=== PATIENT | female | born 1940 | race Caucasian/White ===

== ENCOUNTER → 2017-08-31 | Outpatient (CLI) | payer MEDICARE ==
[2015-02-19 16:05] VITALS: BMI 24.6
[~2017-08-31] MED LIST: ACE3 PO; ATR80PT PO; CYCL10TA29 PO; DEXA2TAB7 PO; FURO-47 PO; HYDR12.556 PO; METF-415 PO; METF10002 PO; METFORMIN PO; MID PO; MORP-1 PO; MORP-20 PO; MOX400 PO; NAPR220C12 PO; OMEP-218 PO; OMEP40CA45 PO; ONDA4TAB PO; OXYC-865 PO; PER PO; PRE10 PO; PRED-1 PO; SERT-184 PO; TRAM-420 PO
--- NOTE | 2017-08-31 12:01 | EKG ---
[place] [facility] [place] NAME: ALEENA BEASLEY : [id number] MR: [id number] V: [id number] EXAM DATE: ORDERING PHYSICIAN: KELSEY BARRERA TECHNOLOGIST: LINH CANALES Test Reason : IRREGULAR HEARTRATE Blood Pressure : / mmHG Vent. Rate : 087 BPM Atrial Rate : 087 BPM P-R Int : 138 ms QRS Dur : 078 ms QT Int : 372 ms P-R-T Axes : 083 102 071 degrees QTc Int : 447 ms Sinus rhythm with sinus arrhythmia with occasional premature ventricular complexes Otherwise normal ECG No previous ECGs available Referred By: ELIZABETH BARRERA Confirmed By:
[2017-08-31 12:06] LABS: PLATELET COUNT, AUTOMATED 227 K/uL (150-450)
[2017-08-31 12:51] LABS: LDL CHOLESTEROL 139 mg/dl
== END ==
LOC: LAB 11:14
PROVIDERS: ATTEND Nurse Practitioner Primary Care
DX: E11.9 Type 2 diabetes mellitus without complications (principal); I10 Essential (primary) hypertension; R06.00 Dyspnea, unspecified
CPT/HCPCS: 36415; 82040; 82247; 82310; 82374; 82435; 82465; 82565; 82947; 83036; 83718; 83880; 84075; 84132; 84155; 84295; 84450; 84460; 84478; 84520; 85025

== ENCOUNTER → 2017-09-05 | Outpatient (CLI) | payer MEDICARE ==
[2015-02-19 16:05] VITALS: BMI 24.6
== END ==
LOC: US 01:31
PROVIDERS: ATTEND Nurse Practitioner Primary Care
DX: I51.7 Cardiomegaly (principal)
CPT/HCPCS: 93306

== ENCOUNTER → 2017-09-12 | Outpatient (CLI) | payer MEDICARE ==
[2015-02-19 16:05] VITALS: BMI 24.6
== END ==
LOC: LAB 12:22
PROVIDERS: ATTEND Nurse Practitioner Primary Care
DX: E11.9 Type 2 diabetes mellitus without complications (principal)
CPT/HCPCS: 36415; 82040; 82247; 82310; 82374; 82435; 82565; 82947; 84075; 84132; 84155; 84295; 84450; 84460; 84520

== ENCOUNTER → 2017-10-05 | Outpatient (CLI) | payer MEDICARE ==
[2015-02-19 16:05] VITALS: BMI 24.6
[~2017-10-05] MED LIST changes: +LISI-362 PO
== END ==
LOC: LAB 14:43
PROVIDERS: ATTEND Nurse Practitioner Primary Care
DX: E11.9 Type 2 diabetes mellitus without complications (principal)
CPT/HCPCS: 36415; 82040; 82247; 82310; 82374; 82435; 82565; 82947; 84075; 84132; 84155; 84295; 84450; 84460; 84520

== ENCOUNTER → 2017-11-07 | Outpatient (CLI) | payer MEDICARE ==
[2015-02-19 16:05] VITALS: BMI 24.6
[~2017-11-07] MED LIST changes: +ATOR40TA69 PO; +DICL100G39 TOP; +METF-421 PO; +PNEU0.5D3 IM; +RANI-318 PO
== END ==
LOC: LAB 15:13
PROVIDERS: ATTEND Family Medicine
DX: E11.9 Type 2 diabetes mellitus without complications (principal)
CPT/HCPCS: 36415; 82040; 82247; 82310; 82374; 82435; 82565; 82947; 83036; 84075; 84132; 84155; 84295; 84439; 84443; 84450; 84460; 84481; 84520

== ENCOUNTER → 2018-01-29 | Outpatient (CLI) | payer MEDICARE ==
[2015-02-19 16:05] VITALS: BMI 24.6
[~2018-01-29] MED LIST changes: +FLU180SY11 IM; -METF-415 PO; -METF-421 PO; +METF-451 PO; +METF-452 PO; +OMEP-125 PO
== END ==
LOC: LAB 16:43
PROVIDERS: ATTEND Family Medicine
DX: E11.9 Type 2 diabetes mellitus without complications (principal)
CPT/HCPCS: 36415; 83036

== ENCOUNTER → 2018-07-08 | Outpatient (CLI) | payer MEDICARE ==
[2015-02-19 16:05] VITALS: BMI 24.6
[2018-07-08 11:17] LABS: PLATELET COUNT, AUTOMATED 254 K/uL (150-450)
== END ==
LOC: LAB 10:59
PROVIDERS: ATTEND Family Medicine
DX: E11.9 Type 2 diabetes mellitus without complications (principal)
CPT/HCPCS: 36415; 82040; 82247; 82310; 82374; 82435; 82565; 82947; 83036; 84075; 84132; 84155; 84295; 84450; 84460; 84520; 85025

== ENCOUNTER 2018-07-16 10:55 | Inpatient (IN) | payer MEDICARE ==
[~2018-07-16] VITALS: Ht 167.6 cm; Wt 59.9 kg
--- NOTE | 2018-07-16 10:59 | ER Report ---
History and Physical Time Seen By MD: 10:59 HPI/ROS CHIEF COMPLAINT: back pain, sciatica HISTORY OF PRESENT ILLNESS: Patient is a 78-year-old female with past medical history significant for back pain and sciatica. She's also been experiencing some left lower extremity pain specifically to the knee. She was seen approximately one week ago and prescribed a topical nonsteroidal anti- inflammatory cream started physical therapy which patient has had one session so far. She was supposed to have a session today but because of her pain she decid ed to come to the ER instead. She is also supposed to be seen with orthopedics on Sunday for evaluation of the leg pain. She denies any recent falls or trauma she denies picking anything up and injuring her low back. She did state that she tried some Vicodin pills for pain without relief today. She denies any fevers or chills. She denies any abdominal pain but does report she's been having episodes of watery diarrhea. REVIEW OF SYSTEMS: Respiratory: No cough, no dyspnea. Cardiovascular: No chest pain, no palpitations. Gastrointestinal: No vomiting, no abdominal pain. Diarrhea Musculoskeletal: Back pain, right hip pain right lower ext pain Allergies: Coded Allergies: No Known Drug Allergies (Unverified , 07/16/18) Home Meds Active Scripts Atorvastatin Calcium (ATORVASTATIN CALCIUM) 40 Mg Tablet, 1 TAB PO HS for 90 Days, #90 TAB 4 Refills Prov:JOSE MARIA QUINTERO MD 07/16/18 Diclofenac Sodium 1% Gel (VOLTAREN 1% GEL) 100 Gm Gel..gram., 2 GM TOP TID PRN for pain for 30 Days, #1 TUBE Prov:JOSE MARIA QUINTERO MD 07/16/18 Metformin Hcl (METFORMIN HCL) 1,000 Mg Tablet, 1 TAB PO BID for 90 Days, #180 TAB 4 Refills Prov:HARRISON NEELY MD 01/29/18 Omeprazole (OMEPRAZOLE) 20 Mg Capsule.dr, 1 CAP PO DAILY for 90 Days, #90 CAP 3 Refills Prov:HARRISON NEELY MD 01/29/18 Reported Medications Lisinopril (LISINOPRIL) 20 Mg Tablet, 20 MG PO QDAY, TAB 07/16/18 Acetaminophen (TYLENOL EXTRA STRENGTH) 500 Mg Tablet, 1000 MG PO TID, TAB 07/16/18 Discontinued Scripts Lisinopril (LISINOPRIL) 10 Mg Tablet, 1 TAB PO QDAY for 90 Days, #90 TAB 4 Refills Prov:HARRISON NEELY MD 01/29/18 Past Medical/Surgical History Past medical history significant for back pain, with sciatica also history of left knee pain, type II diabetes, gastroesophageal reflux disease, hypercholesterolemia. Hx Smoking: Yes Smoking Status: Current: Every Day Smoker Exposure to Second Hand Smoke?: Yes Hx Substance Use Disorder: No Hx Alcohol Use: Yes Constitutional Vital Sign - Last 24 Hours 07/16/18 07/16/18 07/16/18 07/16/18 11:00 11:02 11:25 11:30 Temp 98.0 Pulse 96 72 Resp 20 B/P (MAP) 170/108 170/108 (128) 136/74 (94) Pulse Ox 90 91 O2 Delivery Room Air 07/16/18 07/16/18 07/16/18 07/16/18 11:55 12:00 12:05 12:20 Pulse 77 73 80 B/P (MAP) 123/83 (96) Pulse Ox 95 93 95 07/16/18 07/16/18 07/16/18 07/16/18 12:30 12:35 12:50 13:01 Pulse 79 87 B/P (MAP) 117/101 (106) 180/101 (127) Pulse Ox 95 88 07/16/18 07/16/18 13:05 13:20 Pulse 80 74 Pulse Ox 100 96 Physical Exam General Appearance: The patient is alert, has no immediate need for airway protection and no current signs of toxicity. Musculoskeletal: Neck: Neck is supple and non tender. Examination of the back reveals no evidence of bony step offs or midline tenderness. Patient does seem to be unable to get into a comfortable position with regard to the right hip and right lower extremity. He does appear to have full range of motion of the hip. Skin: No rashes or lesions. Medical Decision Making Data Points Result Diagram: 07/16/18 1118 07/16/18 1118 Laboratory Hematology Test 07/16/18 11:18 Red Blood Count 5.78 M/uL (4.17-5.56) Mean Corpuscular Volume 91.9 fL (80.0-96.0) Mean Corpuscular Hemoglobin 30.0 pg (26.0-33.0) Mean Corpuscular Hemoglobin Concent 32.6 g/dL (32.0-36.0) Red Cell Distribution Width 17.3 % (11.5-14.5) Mean Platelet Volume 8.3 fL (7.2-11.1) Neutrophils (%) (Auto) 74.8 % (39.4-72.5) Lymphocytes (%) (Auto) 18.9 % (17.6-49.6) Monocytes (%) (Auto) 4.8 % (4.1-12.4) Eosinophils (%) (Auto) 0.4 % (0.4-6.7) Basophils (%) (Auto) 1.1 % (0.3-1.4) Nucleated RBC Relative Count (auto) 0.0 /100WBC Neutrophils # (Auto) 4.9 K/uL (2.0-7.4) Lymphocytes # (Auto) 1.2 K/uL (1.3-3.6) Monocytes # (Auto) 0.3 K/uL (0.3-1.0) Eosinophils # (Auto) 0.0 K/uL (0.0-0.5) Basophils # (Auto) 0.1 K/uL (0.0-0.1) Nucleated RBC Absolute Count (auto) 0.00 K/uL Sodium Level 137 mmol/L (137-145) Potassium Level 4.1 mmol/L (3.5-5.0) Chloride Level 102 mmol/L (98-107) Carbon Dioxide Level 25 mmol/L (22-31) Blood Urea Nitrogen 15 mg/dl (7-18) Creatinine 0.90 mg/dl (0.52-1.04) Glomerular Filtration Rate Calc > 60.0 Random Glucose 125 mg/dl (75-110) Calcium Level 9.5 mg/dl (8.4-10.2) Total Bilirubin 0.5 mg/dl (0.2-1.3) Aspartate Amino Transf (AST/SGOT) 23 U/L (0-35) Alanine Aminotransferase (ALT/SGPT) 19 U/L (0-56) Alkaline Phosphatase 92 U/L (0-126) Total Protein 7.2 g/dl (6.3-8.2) Albumin 4.3 g/dl (3.5-5.0) Chemistry Test 07/16/18 11:18 White Blood Count 6.6 k/uL (4.5-11.0) Red Blood Count 5.78 M/uL (4.17-5.56) Hemoglobin 17.3 g/dL (12.0-16.0) Hematocrit 53.1 % (34.0-47.0) Mean Corpuscular Volume 91.9 fL (80.0-96.0) Mean Corpuscular Hemoglobin 30.0 pg (26.0-33.0) Mean Corpuscular Hemoglobin Concent 32.6 g/dL (32.0-36.0) Red Cell Distribution Width 17.3 % (11.5-14.5) Platelet Count 241 K/uL (150-450) Mean Platelet Volume 8.3 fL (7.2-11.1) Neutrophils (%) (Auto) 74.8 % (39.4-72.5) Lymphocytes (%) (Auto) 18.9 % (17.6-49.6) Monocytes (%) (Auto) 4.8 % (4.1-12.4) Eosinophils (%) (Auto) 0.4 % (0.4-6.7) Basophils (%) (Auto) 1.1 % (0.3-1.4) Nucleated RBC Relative Count (auto) 0.0 /100WBC Neutrophils # (Auto) 4.9 K/uL (2.0-7.4) Lymphocytes # (Auto) 1.2 K/uL (1.3-3.6) Monocytes # (Auto) 0.3 K/uL (0.3-1.0) Eosinophils # (Auto) 0.0 K/uL (0.0-0.5) Basophils # (Auto) 0.1 K/uL (0.0-0.1) Nucleated RBC Absolute Count (auto) 0.00 K/uL Glomerular Filtration Rate Calc > 60.0 Calcium Level 9.5 mg/dl (8.4-10.2) Total Bilirubin 0.5 mg/dl (0.2-1.3) Aspartate Amino Transf (AST/SGOT) 23 U/L (0-35) Alanine Aminotransferase (ALT/SGPT) 19 U/L (0-56) Alkaline Phosphatase 92 U/L (0-126) Total Protein 7.2 g/dl (6.3-8.2) Albumin 4.3 g/dl (3.5-5.0) EKG/Imaging Imaging FACILITY: [facility] [place] PATIENT NAME: Juana Steiner : 1940 MR: [id number] V: [id number] EXAM DATE: [id number] ORDERING PHYSICIAN: FER ODEN TECHNOLOGIST: [facility] Patient: Juana Steiner : 1940 Visit/Account:[id number] Date of Sevice: 07/16/2018 Exam type: L-SPINE 2 OR 3 VIEW History: pain/sciatica, new onset Comparison: February 04, 2015. Findings: Two views of the lumbar spine were submitted. There are five nonrib-bearing lumbar-type vertebral bodies present. There is a sacralized transitional segmen t. There is a gentle levoconvex scoliosis. There are mild multilevel spondylotic changes lumbar spine that appears similar to the prior study. No evidence of acute fractures or subluxations. There are mild sclerotic changes at the SI joints likely arthritic. There moderate vascular calcifications present IMPRESSION: 1. Mild spondylotic changes of the lumbar spine appear similar to the prior study Sclerotic changes at the SI joints are likely arthritic Report Dictated By: Danitza Dubose MD at 07/16/2018 1:01 PM Report E-Signed By: Danitza Dubose MD at 07/16/2018 1:03 PM WSN:[email or web address] FACILITY: [facility] [place] PATIENT NAME: Juana Steiner : 1940 MR: [id number] V: [id number] EXAM DATE: [id number] ORDERING PHYSICIAN: FER ODEN TECHNOLOGIST: [facility] Patient: Juana Steiner : 1940 Visit/Account:[id number] Date of Sevice: 07/16/2018 Exam type: HIP RIGHT History: Pain/sciatica with chronic right hip pain and new onset back pain Comparison: February 04, 2015. 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 There is mild degenerative changes of the right hip joint that appears similar to the prior study. IMPRESSION: 1. Mild degenerative changes the right hip joint appears similar to the prior study. If symptoms persist however MR is recommended Severe osteophytic changes left hip which have increased when compared the prior study Report Dictated By: Danitza Dubose MD at 07/16/2018 12:59 PM Report E-Signed By: Danitza Dubose MD at 07/16/2018 1:01 PM WSN:[email or web address] ED Course/Re-evaluation ED Course 07/16/2018 1:14:08 pm the patient was given a total 4 mg of morphine, 50 mg of IV Toradol and 2 mg of oral Valium with some reduction in her pain. Patient was seen and evaluated by physical therapy to determine stability for ambulation and self-care at home. Patient was unable to perform adequately. Physical therapy's concern was that she lives at home and risk of possible fall. Case was discussed with the admitting hospitalist and patient is admitted at this time. Decision to Disposition Date: Jul 16, 2018 Decision to Disposition Time: 13:14 Depart Departure Latest Vital Signs Vital Signs Date Time Temp Pulse Resp B/P (MAP) Pulse Ox O2 Delivery O2 Flow Rate FiO2 07/16/18 13:20 74 96 07/16/18 13:01 180/101 (127) 07/16/18 11:00 98.0 20 Room Air Impression: Primary Impression: Sciatica Condition: Improved Disposition: Admitted from ER (to Dr Reanna Quintero) Referrals: HARRISON NEELY MD (PCP) New Scripts Atorvastatin Calcium (ATORVASTATIN CALCIUM) 40 Mg Tablet 1 TAB PO HS for 90 Days, #90 TAB 4 Refills Prov: JOSE MARIA QUINTERO MD 07/16/18 Diclofenac Sodium 1% Gel (VOLTAREN 1% GEL) 100 Gm Gel..gram. 2 GM TOP TID PRN for pain for 30 Days, #1 TUBE Prov: JOSE MARIA QUINTERO MD 07/16/18 Problem Qualifiers Primary Impression: Sciatica Laterality: right Qualified Codes: M54.31 - Sciatica, right side FER ODEN MD Jul 16, 2018 10:59
[2018-07-16] MEDS ORDERED: ACET500T68 PO (11:09)
[2018-07-16] MEDS ORDERED: DIAZEPAM 2 MG TAB PO ONE (11:15)
[2018-07-16] MEDS ORDERED: MORPHINE 2 MG/ML SYR IVP ONE ×2 (11:15→11:55)
[2018-07-16 11:29] LABS: PLATELET COUNT, AUTOMATED 241 K/uL (150-450)
[2018-07-16] MEDS ORDERED: KETOROLAC 15 MG/ML VIAL IVP ONE (11:55)
--- NOTE | 2018-07-16 13:05 | RADIOLOGY IMAGING REPORT ---
FACILITY: [facility] - [place] PATIENT NAME: Juana Steiner : 1940 MR: [id number] V: [id number] EXAM DATE: [id number] ORDERING PHYSICIAN: FER ODEN TECHNOLOGIST: Location: [facility] Patient: Juana Steiner : 1940 Visit/Account:[id number] Date of Sevice: 07/16/2018 Exam type: HIP RIGHT History: Pain/sciatica with chronic right hip pain and new onset back pain Comparison: February 04, 2015. 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 There is mild degenerative changes of the right hip joint that appears similar to the prior study. IMPRESSION: 1. Mild degenerative changes the right hip joint appears similar to the prior study. If symptoms pe rsist however MR is recommended Severe osteophytic changes left hip which have increased when compared the prior study Report Dictated By: Danitza Dubose MD at 07/16/2018 12:59 PM Report E-Signed By: Danitza Dubose MD at 07/16/2018 1:01 PM WSN:[email or web address]
--- NOTE | 2018-07-16 13:07 | RADIOLOGY IMAGING REPORT ---
FACILITY: [facility] PATIENT NAME: Juana Steiner : 1940 MR: [id number] V: [id number] EXAM DATE: ORDERING PHYSICIAN: FER ODEN TECHNOLOG[place]: [place] [facility] [place] Ste[place] : 1940 Visit/Account:[id number] Date of Sevice: 07/16/2018 Exam type: L-SPINE 2 OR 3 VIEW History: pain/sciatica, new onset Comparison: February 04, 2015. Findings: Two views of the lumbar spine were submitted. There are five nonrib-bearing lumbar-type vertebral karuna dies present. There is a sacralized transitional segment. There is a gentle levoconvex scoliosis. There are mild multilevel spondylotic changes lumbar spine that appears similar to the prior study. No evidence of acute fractures or subluxations. There are mild sclerotic changes at the SI joints li nathalie arthritic. There moderate vascular calcifications present IMPRESSION: 1. Mild spondylotic changes of the lumbar spine appear similar to the prior study Sclerotic changes at the SI joints are likely arthritic Report Dictated By: Danitza Dubose MD at 07/16/2018 1:01 PM Report E-Signed By: Danitza Dubose MD at 07/16/2018 1:03 PM WSN:[email or web address]
[2018-07-16] MEDS ORDERED: ATOR40TA69 PO (13:38)
[2018-07-16] MEDS ORDERED: DICL100G39 TOP (13:38)
[2018-07-16] MEDS ORDERED: LISI20TA29 PO (13:38)
[2018-07-16] MEDS ORDERED: MORPHINE 1 MG/ML 30 ML PCA IV PRN (14:15)
[2018-07-16] MEDS ORDERED: NALOXONE HCL 0.4 MG/ML VIAL IVP PRN (14:15)
[2018-07-16 14:29] VITALS: BP 164/80
--- NOTE | 2018-07-16 15:04 | History & Physical ---
History of Present Illness History of Present Illness 78yo female with a h/o sciatica, T2DM and recent left knee/ankle pain who came to the ER for R buttock to posterior R thigh pain. This morning while getting up to get another cup of coffee, she developed severe sharp pain along the right side of her "waist". She ended up walking a bit and the pain improved some. However, throughout the morning the pain worsened and would be exacerbated by walking, sitting, or standing up. The pain would go down the back of her right leg to about mid thigh. It got to the point where she couldn't get out of a chair. She has been dealing with left knee pain that radiates to the left ankle on the lateral aspect for a couple of weeks. She also has some numnbess around the lateral ankle. She is to have an appointment with Dr. Bowling on 07/19. She denies any recent falls or trauma. She denies numbness/tingling/weakness in the left leg. She denies urinary incontinence/f/c. In the ER, she was given Toradol, morphine x2, and diazepam. She had some improvement, but when she walked with PT, she had to sit down because of severe pain. History Problems: (1) Hyperlipemia (2) Type 2 diabetes mellitus Status: Chronic (3) GERD (gastroesophageal reflux disease) Status: Chronic (4) History of hysterectomy Status: Resolved (5) Hx of inguinal hernia repair Status: Resolved (6) Sciatica Status: Chronic (7) HTN (hypertension) Status: Chronic Home Meds Active Scripts Atorvastatin Calcium (ATORVASTATIN CALCIUM) 40 Mg Tablet, 1 TAB PO HS for 90 Days, #90 TAB 4 Refills Prov:JOSE MARIA QUINTERO MD 07/16/18 Diclofenac Sodium 1% Gel (VOLTAREN 1% GEL) 100 Gm Gel..gram., 2 GM TOP TID PRN for pain for 30 Days, #1 TUBE Prov:JOSE MARIA QUINTERO MD 07/16/18 Metformin Hcl (METFORMIN HCL) 1,000 Mg Tablet, 1 TAB PO BID for 90 Days, #180 TAB 4 Refills Prov:HARRISON NEELY MD 01/29/18 Omeprazole (OMEPRAZOLE) 20 Mg Capsule.dr, 1 CAP PO DAILY for 90 Days, #90 CAP 3 Refills Prov:HARRISON NEELY MD 01/29/18 Reported Medications Lisinopril (LISINOPRIL) 20 Mg Tablet, 20 MG PO QDAY, TAB 07/16/18 Acetaminophen (TYLENOL EXTRA STRENGTH) 500 Mg Tablet, 1000 MG PO TID, TAB 07/16/18 Discontinued Scripts Lisinopril (LISINOPRIL) 10 Mg Tablet, 1 TAB PO QDAY for 90 Days, #90 TAB 4 Refills Prov:HARRISON NEELY MD 01/29/18 Allergies: Coded Allergies: No Known Drug Allergies (Unverified , 07/16/18) Patient History: FH: CAD (coronary artery disease) MOTHER, , Age:74 Type 2 diabetes mellitus FATHER, , Age:78 MOTHER, , Age:74 Other Social/Family Hx Rare alcohol use. . Lives alone. 1/3ppd smoker. Smoked for over 40 years. Hx Smoking: Yes (1/2 pack per day) Smoking Status: Never Smoker, Current: Every Day Smoker Exposure to Second Hand Smoke?: Yes Caffeine Intake: Coffee, Tea Caffeine/Cups Per Day: 4 Hx Alcohol Use: Yes Hx Substance Use Disorder: No Social Drug Use: Never Review of Systems All Systems Reviewed/Normal: Yes, Except as Noted Exam Vital Signs Vital Signs Date Time Temp Pulse Resp B/P (MAP) Pulse Ox O2 Delivery O2 Flow Rate FiO2 07/16/18 14:29 98.5 73 16 164/80 (108) 92 Room Air 07/16/18 13:49 2.0 General Appearance: Alert, Awake, No Acute Distress Neuro: No Gross deficits (Normal sensation to light touch in LE bilaterally. Normal and symmetric plantar flexion/dorsiflexion/hip flexion. She had some right low back pain with resistance to hip flexion bilaterally and passive hip flexion bilaterally. No clonus.) Eyes: PERRLA ENT: Moist Mucous Membranes Cardiovascular: Regular Rate and Rhythm Respiratory: Clear to Auscultation GI: Abd Soft and Non-Tender Extremities: Warm, Perfused; No Edema Integumentary: No Jaundice, No Cyanosis Medical Decision Making Data Points Result Diagram: 07/16/18 1118 07/16/18 1118 Item Value Date Time Hemoglobin 16.4 g/dL H 07/08/18 1105 Hemoglobin 16.9 g/dL H 08/31/17 1140 Neutrophils (%) (Auto) 74.8 % H 07/16/18 1118 Lymphocytes (%) (Auto) 18.9 % 07/16/18 1118 Monocytes (%) (Auto) 4.8 % 07/16/18 1118 Eosinophils (%) (Auto) 0.4 % 07/16/18 1118 Calcium Level 9.5 mg/dl 07/16/18 1118 Total Bilirubin 0.5 mg/dl 07/16/18 1118 Aspartate Amino Transf (AST/SGOT) 23 U/L 07/16/18 1118 Alanine Aminotransferase (ALT/SGPT) 19 U/L 07/16/18 1118 Alkaline Phosphatase 92 U/L 07/16/18 1118 Blood Urea Nitrogen 13 mg/dl 07/08/18 1105 Creatinine 0.80 mg/dl 07/08/18 1105 EKG / Imaging Imaging Hip Xray - 1. Mild degenerative changes the right hip joint appears similar to the prior study. If symptoms persist however MR is recommended Severe osteophytic changes left hip which have increased when compared the prior study Lumbar Xray - 1. Mild spondylotic changes of the lumbar spine appear similar to the prior study Sclerotic changes at the SI joints are likely arthritic Assessment and Plan Problems: (1) Intractable back pain Status: Acute Assessment & Plan: She presented with severe sharp pain in the right buttock that radiated to mid posterior thigh. She was unable to ambulate secondary to t he pain. No urinary incontinence or RLE weakness/numbness/tingling. She has a h/o a hospital admissions x2 in 01/2015 for right sided sciatica pain related to likely right sided L2 nerve root compression seen on MRI. She ended up having a course of systemic steroids and then had a local steroid injection at and . No problems since. 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 Will ask OT/PT to see tomorrow. (2) Sciatica Status: Chronic Assessment & Plan: See above. (3) Left knee pain Status: Acute Assessment & Plan: She has been dealing with left knee pain that radiates to the left ankle on the lateral aspect for a couple of weeks. She also has some numbness around the lateral ankle. She is to have an appointment with Dr. Bowling on 07/19. (4) Type 2 diabetes mellitus Status: Chronic Assessment & Plan: Chronically on metformin. Likely, having some intermittent loose stools secondary to it. Will continue and use SSI level #2. (5) HTN (hypertension) Status: Chronic Assessment & Plan: Chronically on lisinopril with parameters. Copies to: SEVEN BOWLING MD; HARRISON NEELY MD ; Venous Thromboembolism Antithrombotics Is Pt On Any Antithrombotics?: No Exam Sepsis Risk: No Definite Risk Problem Qualifiers (1) Sciatica: Laterality: right Qualified Codes: M54.31 - Sciatica, right side (2) Left knee pain: Chronicity: chronic Qualified Codes: M25.562 - Pain in left knee; G89.29 - Other chronic pain JOSE MARIA QUINTERO MD Jul 16, 2018 15:04
[2018-07-16] MEDS: LIDOCAINE 5% PATCH TP SCH (15:20)
[2018-07-16] MEDS: DEXAMETHASONE SOD 4 MG/ML VIAL IVP SCH ×2 (15:20→20:44)
[2018-07-16] MEDS ORDERED: PCA LOCKBOX KEYS XX ONE (15:26)
[2018-07-16] MEDS: NS(*) 0.9% 500 ML BAG 500 ML IV PRN (15:39)
[2018-07-16] MEDS ORDERED: PCA LOCKBOX KEYS XX PRN (16:15)
[2018-07-16] MEDS ORDERED: ONDANSETRON 4 MG/2 ML VIAL IVP PRN (17:05)
[2018-07-16] MEDS: metFORMIN HCL 500 MG TAB PO SCH (17:22)
[2018-07-16] MEDS: ACETAMINOPHEN 500 MG TAB PO SCH (17:22)
[2018-07-16 19:23] VITALS: BP 130/83
[2018-07-16] MEDS: ATORVASTATIN 40 MG TAB PO SCH (20:43)
[2018-07-16] MEDS: PATCH REMOVAL 1 EA TP SCH (20:44)
[2018-07-16] MEDS: INSULIN HUM LISPRO 100 UN/ML 3 ML VIAL SUBQ PRN (21:06)
[2018-07-17] MEDS: ACETAMINOPHEN 500 MG TAB PO SCH ×3 (00:18→16:50)
[2018-07-17 02:48] VITALS: BP 167/94
[2018-07-17 07:09] VITALS: BP 127/75
[2018-07-17] MEDS: ENOXAPARIN 40 MG/0.4ML SYR SC SCH (08:27)
[2018-07-17] MEDS: metFORMIN HCL 500 MG TAB PO SCH ×2 (08:28→16:50)
[2018-07-17] MEDS: PANTOPRAZOLE SOD 40 MG TABEC PO SCH (08:29)
[2018-07-17] MEDS: DEXAMETHASONE SOD 4 MG/ML VIAL IVP SCH ×2 (08:29→20:24)
[2018-07-17] MEDS: LISINOPRIL 20 MG TAB PO SCH (08:29)
[2018-07-17] MEDS: NS(*) 0.9% 500 ML BAG 500 ML IV PRN (08:30)
[2018-07-17] MEDS: LIDOCAINE 5% PATCH TP SCH (08:30)
--- NOTE | 2018-07-17 10:50 | Hospitalist Progress Note ---
Subjective Progress Notes Subjective She reports pain has improved. Still some radiation into right buttock/leg. Physical Exam Vital Signs Date Time Temp Pulse Resp B/P (MAP) Pulse Ox O2 Delivery O2 Flow Rate FiO2 07/17/18 09:09 16 96 07/17/18 07:26 Nasal Cannula 2.0 07/17/18 07:09 97.7 82 127/75 (92) Intake and Output 07/17/18 07:00 Intake Total 1126 ml Balance 1126 ml Intake Oral 700 ml IV Total 426 ml # Voids 1 General Appearance: Alert, Awake Neuro: Other (no focal motor deficits/DTRs 1/4 bilaterally in patellar and Achilles) Musculoskeletal: Other (Back with some paraspinal muscle spasm/no trigger point) Psych: Alert & Oriented X3 Result Diagram: 07/16/18 1118 07/16/18 1118 Assessment and Plan Problems: (1) Intractable back pain Status: Acute Assessment & Plan: She presented with severe sharp pain in the right buttock that radiated to mid posterior thigh. She was unable to ambulate secondary to the pain. No urinary incontinence or RLE weakness/numbness/tingling. She has a history of hospital admissions x2 in 01/2015 for right sided sciatica pain related to likely right sided L2 nerve root compression seen on MRI. She ended up having a course of systemic steroids and then had a local steroid injection with Dr. Rizo. She had done well since. 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 OT/PT to see today. She will probably need repeat MRI, but may wait until symptoms have improved (as an outpatient) as she does not feel she could probably lay flat for an extended period of time. (2) Sciatica Status: Chronic Assessment & Plan: See above. (3) Left knee pain Status: Acute Assessment & Plan: She has been dealing with left knee pain that radiates to the left ankle on the lateral aspect for a couple of weeks. She also has some numbness around the lateral ankle. She is to have an appointment with Dr. Bowling on 07/19. (4) Type 2 diabetes mellitus Status: Chronic Assessment & Plan: Chronically on metformin. Likely, having some intermittent loose stools secondary to it. Will continue and use SSI level #2. (5) HTN (hypertension) Status: Chronic Assessment & Plan: Chronically on lisinopril with parameters. Exam Sepsis Risk: No Definite Risk Problem Qualifiers (1) Sciatica: Laterality: right Qualified Codes: M54.31 - Sciatica, right side (2) Left knee pain: Chronicity: chronic Qualified Codes: M25.562 - Pain in left knee; G89.29 - Other chronic pain MARCI OROZCO MD Jul 17, 2018 10:50
[2018-07-17] MEDS: INSULIN HUM LISPRO 100 UN/ML 3 ML VIAL SUBQ PRN ×2 (11:07→16:38)
[2018-07-17] MEDS: DIAZEPAM 2 MG TAB PO PRN ×2 (11:38→20:22)
[2018-07-17 15:09] VITALS: BP 152/70
[2018-07-17 15:11] VITALS: BP 157/83
[2018-07-17 15:53] VITALS: Ht 167.6 cm; Wt 59.9 kg
[2018-07-17 19:08] VITALS: BP 145/75
[2018-07-17] MEDS ORDERED: LISI-362 PO (19:43)
[2018-07-17] MEDS: ATORVASTATIN 40 MG TAB PO SCH (20:22)
[2018-07-17] MEDS: PATCH REMOVAL 1 EA TP SCH (20:22)
[2018-07-18] MEDS: ACETAMINOPHEN 500 MG TAB PO SCH ×2 (00:45→08:56)
[2018-07-18] MEDS: NS(*) 0.9% 500 ML BAG 500 ML IV PRN (03:02)
[2018-07-18 08:48] VITALS: BP 138/68
[2018-07-18] MEDS: metFORMIN HCL 500 MG TAB PO SCH (08:55)
[2018-07-18] MEDS: ENOXAPARIN 40 MG/0.4ML SYR SC SCH (08:56)
[2018-07-18] MEDS: LISINOPRIL 20 MG TAB PO SCH (08:56)
[2018-07-18] MEDS: DEXAMETHASONE SOD 4 MG/ML VIAL IVP SCH (08:56)
[2018-07-18] MEDS: PANTOPRAZOLE SOD 40 MG TABEC PO SCH (08:56)
[2018-07-18] MEDS: LIDOCAINE 5% PATCH TP SCH (08:57)
[2018-07-18] MEDS ORDERED: POLYETHYLENE GLYCOL 17 GM PKT PO ONE (09:00)
[2018-07-18] MEDS ORDERED: METH4TAB66 PO (09:47)
[2018-07-18] MEDS ORDERED: DIAZ2TAB74 PO (09:47)
[2018-07-18] MEDS ORDERED: OXYC5TAB38 PO (09:47)
--- NOTE | 2018-07-18 09:57 | Hospitalist Depart ---
Discharge Summary Reason for Hosp/Final Diag: (1) Intractable back pain Status: Acute Hospital Course & Plan: She presented with severe sharp pain in the right buttock that radiated to mid posterior thigh. She was unable to ambulate secondary to the pain. No urinary incontinence or RLE weakness/numbness/tingling. She has a history of hospital admissions x2 in 01/2015 for right sided sciatica pain related to likely right sided L2 nerve root compression seen on MRI. She ended up having a course of systemic steroids and then had a local steroid injection with Dr. Rizo. She had done well since. 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 OT/PT recommended HH for patient. She will probably need repeat MRI, but may wait until symptoms have improved (as an outpatient) as she does not feel she could probably lay flat for an extended period of time. She has appointment tomorrow with Dr. Bowling. (2) Sciatica Status: Chronic Hospital Course & Plan: See above. (3) Left knee pain Status: Acute Hospital Course & Plan: She has been dealing with left knee pain that radiates to the left ankle on the lateral aspect for a couple of weeks. She also has some numbness around the lateral ankle. She is to have an appointment with Dr. Bowling on 07/19. (4) Type 2 diabetes mellitus Status: Chronic Hospital Course & Plan: Chronically on metformin. Likely, having some intermi ttent loose stools secondary to it. She will follow up with Dr. Neely. Continue. (5) HTN (hypertension) Status: Chronic Hospital Course & Plan: Chronically on lisinopril with parameters. Departure Latest Vital Signs Vital Signs 07/18/18 07/18/18 07/18/18 08:48 09:07 09:20 Temp 98.1 Pulse 66 Resp 14 B/P (MAP) 138/68 (91) Pulse Ox 93 O2 Delivery Room Air Weight (Pounds): 132 Result Diagram: 07/16/18 1118 07/16/18 1118 Condition: Improved Discharge: Home, Home Health PT/OT Follow Up For: PT For Strengthening, OT For ADL's, PT Evaluation and Treat, OT Evaluation and Treat Discharge Instructions Home Meds Active Scripts Methylprednisolone (METHYLPREDNISOLONE) 4 Mg Tab.ds.pk, 4 MG PO DIRECTED, #1 PACK Prov:JACLYN THOMPSON 07/18/18 Diazepam (DIAZEPAM) 2 Mg Tablet, 2 MG PO TID PRN for spasm, #12 TAB Prov:JACLYN THOMPSON [facility] 07/18/18 Oxycodone Hcl (OXYCODONE HCL) 5 Mg Tablet, 5 MG PO Q6H PRN for PAIN, #12 TAB Prov:JACLYN THOMPSON [facility] 07/18/18 Atorvastatin Calcium (ATORVASTATIN CALCIUM) 40 Mg Tablet, 1 TAB PO HS for 90 Days, #90 TAB 4 Refills Prov:JOSE MARIA QUINTERO MD 07/16/18 Diclofenac Sodium 1% Gel (VOLTAREN 1% GEL) 100 Gm Gel..gram., 2 GM TOP TID PRN for pain for 30 Days, #1 TUBE Prov:JOSE MARIA QUINTERO MD 07/16/18 Metformin Hcl (METFORMIN HCL) 1,000 Mg Tablet, 1 TAB PO BID for 90 Days, #180 TAB 4 Refills Prov:AHRRISON NEELY MD 01/29/18 Omeprazole (OMEPRAZOLE) 20 Mg Capsule.dr, 1 CAP PO DAILY for 90 Days, #90 CAP 3 Refills Prov:HARRISON NEELY MD 01/29/18 Reported Medications Lisinopril (LISINOPRIL) 10 Mg Tablet, 1 TAB PO QDAY 07/17/18 Acetaminophen (TYLENOL EXTRA STRENGTH) 500 Mg Tablet, 1-2 TAB PO TID PRN for PAIN, TAB 07/16/18 Discontinued Reported Medications Lisinopril (LISINOPRIL) 20 Mg Tablet, 20 MG PO QDAY, TAB 07/16/18 Discontinued Scripts Lisinopril (LISINOPRIL) 10 Mg Tablet, 1 TAB PO QDAY for 90 Days, #90 TAB 4 Refills Prov:HARRISON NEELY MD 01/29/18 Diet: Regular, Diabetic Activity: As Tolerated Special Instructions: Follow up with Dr. Bowling at [facility] 07/19/18. Follow up with Dr. Neely on 08/05/18 at 9:30am. Take Valium and Oxycodone as needed. Take Medrol dose pack until gone. Copies to: HARRISON NEELY MD ; Venous Thromboembolism Antithrombotics Is Pt On Any Antithrombotics?: No Problem Qualifiers (1) Sciatica: Laterality: right Qualified Codes: M54.31 - Sciatica, right side (2) Left knee pain: Chronicity: chronic Qualified Codes: M25.562 - Pain in left knee; G89.29 - Other chronic pain (3) HTN (hypertension): Hypertension type: essential hypertension Qualified Codes: I10 - Essential (primary) hypertension JACLYN THOMPSON [facility] Jul 18, 2018 09:57
[2018-07-20] MEDS ORDERED: INFLUENZA VIRUS VAC 0.5ML SYR IM ONLY ONE (09:00)
== END 2018-07-18 10:30 | disposition home health service (06) | DRG 74 ==
LOC: ER 11:16 → MED 13:21
PROVIDERS: ADMIT Internal Medicine; ATTEND Internal Medicine
DX: G54.4 Lumbosacral root disorders, not elsewhere classified (principal); E11.9 Type 2 diabetes mellitus without complications; K21.9 Gastro-esophageal reflux disease without esophagitis; F17.210 Nicotine dependence, cigarettes, uncomplicated; G89.29 Other chronic pain; E78.00 Pure hypercholesterolemia, unspecified; R42 Dizziness and giddiness; M25.562 Pain in left knee; Z79.84 Long term (current) use of oral hypoglycemic drugs
CPT/HCPCS: 36416; 72100; 82040; 82247; 82310; 82374; 82435; 82565; 82947; 82948; 84075; 84132; 84155; 84295; 84450; 84460; 84520; 85025; 96374; 96375; 96376; 97161; 97165; 99284; J1100; J1650; J1885; J2270; J2405; J7040

== ENCOUNTER → 2018-08-06 | Emergency (ER) | payer MEDICARE ==
[2018-07-17 15:53] VITALS: Wt 59.9 kg
[~2018-08-06] MED LIST changes: +ACET500T68 PO; +CAPSAICIN 60 GM TUBE TP SCH; +DEXAMETHASONE SOD PHOS 10MG/ML IVP ONE; +DIAZ2TAB74 PO; +DILTIAZEM 5 MG/ML 5ML IVPUSH IVP ONE; +DILTIAZEM SR 60 MG CAPCR PO ONE; +LISI20TA29 PO; +METH4TAB66 PO; +MORPHINE 4 MG/ML SDV IVP ONE; +NS(*) 0.9% 1000 ML BAG 1,000 ML IV ONE; +OXYC-373 PO; +OXYC5TAB38 PO; +TRIAMCINOLONE ACE 40 MG/ML VL IM ONE; +traMADol 50 MG TAB PO ONE
--- NOTE | 2018-08-06 12:37 | ER Report ---
History and Physical Time Seen By MD: 12:36 HPI/ROS History of sciatica and other areas of pain. Was recently admitted to the hospital for pain control. Was placed on Percocet and Valium upon discharge from the hospital. Ran out of meds 3 days ago and now with pain again. No recent falls. No fever chills. No abdominal pain, chest pain, or worsening shortness of breath from her baseline. Smokes cigarettes daily. Has follow up appointment with Dr. Farooq at [facility] this week. Remainder of the 14 system rev: Yes Allergies: Coded Allergies: No Known Drug Allergies (Unverified , 08/06/18) Home Meds Active Scripts Oxycodone Hcl/Acetaminophen (OXYCODONE-ACETAMINOPHEN 5-325) 1 Each Tablet, 1 EACH PO 1-2XD for 7 Days, #14 TAB Prov:IMAN CHEATHAM MD 08/06/18 Oxycodone Hcl (OXYCODONE HCL) 5 Mg Tablet, 5 MG PO Q6H PRN for PAIN, #12 TAB Prov:JACLYN THOMPSON 07/18/18 Atorvastatin Calcium (ATORVASTATIN CALCIUM) 40 Mg Tablet, 1 TAB PO HS for 90 Days, #90 TAB 4 Refills Prov:JOSE MARIA QUINTERO MD 07/16/18 Diclofenac Sodium 1% Gel (VOLTAREN 1% GEL) 100 Gm Gel..gram., 2 GM TOP TID PRN for pain for 30 Days, #1 TUBE Prov:JOSE MARIA QUINTERO MD 07/16/18 Metformin Hcl (METFORMIN HCL) 1,000 Mg Tablet, 1 TAB PO BID for 90 Days, #180 TAB 4 Refills Prov:HARRISON NEELY MD 01/29/18 Omeprazole (OMEPRAZOLE) 20 Mg Capsule.dr, 1 CAP PO DAILY for 90 Days, #90 CAP 3 Refills Prov:HARRISON NEELY MD 01/29/18 Reported Medications Lisinopril (LISINOPRIL) 10 Mg Tablet, 1 TAB PO QDAY 07/17/18 Acetaminophen (TYLENOL EXTRA STRENGTH) 500 Mg Tablet, 1-2 TAB PO TID PRN for PAIN, TAB 07/16/18 Discontinued Scripts Methylprednisolone (METHYLPREDNISOLONE) 4 Mg Tab.ds.pk, 4 MG PO DIRECTED, #1 PACK Prov:JACLYN THOMPSON 07/18/18 Diazepam (DIAZEPAM) 2 Mg Tablet, 2 MG PO TID PRN for spasm, #12 TAB Prov:JACLYN THOMPSON [employer] 07/18/18 Hx Smoking: Yes (1/2 pack per day) Smoking Status: Never Smoker, Current: Every Day Smoker Exposure to Second Hand Smoke?: Yes Hx Substance Use Disorder: No Hx Alcohol Use: Yes Constitutional Vital Sign - Last 24 Hours 08/06/18 08/06/18 08/06/18 08/06/18 12:30 12:30 13:12 13:15 Temp 97.7 Pulse 108 117 161 Resp 20 13 B/P (MAP) 123/88 101/84 (90) Pulse Ox 90 93 O2 Delivery Room Air 08/06/18 08/06/18 08/06/18 08/06/18 13:19 13:24 13:30 13:45 Pulse 86 85 Resp 13 16 B/P (MAP) 124/64 (84) 99/84 (89) 125/74 (91) 113/79 (90) Pulse Ox 95 94 08/06/18 08/06/18 08/06/18 08/06/18 14:00 14:15 14:30 14:45 Pulse 93 89 103 Resp 9 7 11 28 B/P (MAP) 123/80 (94) 137/80 (99) 133/73 (93) Pulse Ox 86 92 82 08/06/18 08/06/18 08/06/18 08/06/18 15:00 15:15 15:30 17:15 Pulse 89 80 82 96 Resp 10 15 16 B/P (MAP) 140/91 (107) 154/86 (108) 112/80 (91) Pulse Ox 86 84 97 91 08/06/18 08/06/18 08/06/18 17:30 17:38 17:45 Pulse 91 90 B/P (MAP) 158/83 (108) Pulse Ox 91 88 Physical Exam General Appearance: The patient is alert, has no immediate need for airway protection and no signs of toxicity. Eyes: Pupils equal and round no pallor or injection. Respiratory: There are no retractions, lungs are clear to auscultation. Cardiovascular: Regular rate and rhythm. Gastrointestinal: Abdomen is soft and non tender, no masses, bowel sounds normal. Neurological: Strength/sensation grossly in tact. Skin: Warm and dry, no rashes. Musculoskeletal: TTP at the left sciatic region Extremities are nontender, nonswollen and have full range of motion. DIFFERENTIAL DIAGNOSIS: After history and physical exam differential diagnosis was considered for back pain including but not limited to muscular pain, herniated disc, spine fracture, intra-abdominal causes and urinary tract infection. Medical Decision Making Data Points Result Diagram: 08/06/18 1310 08/06/18 1310 Laboratory Hematology Test 08/06/18 13:10 Red Blood Count 5.57 M/uL (4.17-5.56) Mean Corpuscular Volume 92.7 fL (80.0-96.0) Mean Corpuscular Hemoglobin 30.3 pg (26.0-33.0) Mean Corpuscular Hemoglobin Concent 32.7 g/dL (32.0-36.0) Red Cell Distribution Width 17.8 % (11.5-14.5) Mean Platelet Volume 8.3 fL (7.2-11.1) Neutrophils (%) (Auto) 81.6 % (39.4-72.5) Lymphocytes (%) (Auto) 12.7 % (17.6-49.6) Monocytes (%) (Auto) 4.7 % (4.1-12.4) Eosinophils (%) (Auto) 0.4 % (0.4-6.7) Basophils (%) (Auto) 0.6 % (0.3-1.4) Nucleated RBC Relative Count (auto) 0.0 /100WBC Neutrophils # (Auto) 5.9 K/uL (2.0-7.4) Lymphocytes # (Auto) 0.9 K/uL (1.3-3.6) Monocytes # (Auto) 0.3 K/uL (0.3-1.0) Eosinophils # (Auto) 0.0 K/uL (0.0-0.5) Basophils # (Auto) 0.0 K/uL (0.0-0.1) Nucleated RBC Absolute Count (auto) 0.00 K/uL D-Dimer Quantitative (PE/DVT) 0.60 ug/ml (0-0.50) Sodium Level 135 mmol/L (137-145) Potassium Level 4.0 mmol/L (3.5-5.0) Chloride Level 102 mmol/L (98-107) Carbon Dioxide Level 24 mmol/L (22-31) Blood Urea Nitrogen 14 mg/dl (7-18) Creatinine 1.00 mg/dl (0.52-1.04) Glomerular Filtration Rate Calc 53.6 Random Glucose 143 mg/dl (75-110) Calcium Level 9.3 mg/dl (8.4-10.2) Total Bilirubin 0.5 mg/dl (0.2-1.3) Aspartate Amino Transf (AST/SGOT) 23 U/L (0-35) Alanine Aminotransferase (ALT/SGPT) 22 U/L (0-56) Alkaline Phosphatase 85 U/L (0-126) Troponin I 0.016 ng/ml Total Protein 6.4 g/dl (6.3-8.2) Albumin 3.7 g/dl (3.5-5.0) Chemistry Test 08/06/18 13:10 White Blood Count 7.3 k/uL (4.5-11.0) Red Blood Count 5.57 M/uL (4.17-5.56) Hemoglobin 16.9 g/dL (12.0-16.0) Hematocrit 51.7 % (34.0-47.0) Mean Corpuscular Volume 92.7 fL (80.0-96.0) Mean Corpuscular Hemoglobin 30.3 pg (26.0-33.0) Mean Corpuscular Hemoglobin Concent 32.7 g/dL (32.0-36.0) Red Cell Distribution Width 17.8 % (11.5-14.5) Platelet Count 265 K/uL (150-450) Mean Platelet Volume 8.3 fL (7.2-11.1) Neutrophils (%) (Auto) 81.6 % (39.4-72.5) Lymphocytes (%) (Auto) 12.7 % (17.6-49.6) Monocytes (%) (Auto) 4.7 % (4.1-12.4) Eosinophils (%) (Auto) 0.4 % (0.4-6.7) Basophils (%) (Auto) 0.6 % (0.3-1.4) Nucleated RBC Relative Count (auto) 0.0 /100WBC Neutrophils # (Auto) 5.9 K/uL (2.0-7.4) Lymphocytes # (Auto) 0.9 K/uL (1.3-3.6) Monocytes # (Auto) 0.3 K/uL (0.3-1.0) Eosinophils # (Auto) 0.0 K/uL (0.0-0.5) Basophils # (Auto) 0.0 K/uL (0.0-0.1) Nucleated RBC Absolute Count (auto) 0.00 K/uL D-Dimer Quantitative (PE/DVT) 0.60 ug/ml (0-0.50) Glomerular Filtration Rate Calc 53.6 Calcium Level 9.3 mg/dl (8.4-10.2) Total Bilirubin 0.5 mg/dl (0.2-1.3) Aspartate Amino Transf (AST/SGOT) 23 U/L (0-35) Alanine Aminotransferase (ALT/SGPT) 22 U/L (0-56) Alkaline Phosphatase 85 U/L (0-126) Troponin I 0.016 ng/ml Total Protein 6.4 g/dl (6.3-8.2) Albumin 3.7 g/dl (3.5-5.0) Coagulation Test 08/06/18 13:10 D-Dimer Quantitative (PE/DVT) 0.60 ug/ml ED Course/Re-evaluation ED Course The patient came to the emergency department with a complaint of left back and leg pain. However while in the emergency department it was noted that the patient went into paroxysmal atrial flutter with RVR. She was given a dose of diltiazem which converted her back to sinus rhythm. Normal heart rate after that. As far as her sciatica pain, a trigger point injection was administered us ing lidocaine bupivacaine and Kenalog. Her pain was not relieved, and after an extensive conversation with the family and Dr. Neely, the only option to keep her from having to be admitted to the hospital was a prescription for Percocet. I gave her an RX for Percocet, and she will follow up with Dr. Farooq this week. For her episode of aflutter, she was placed on a 48 hour holter monitor, and will follow up with Dr. Neely. Decision to Disposition Date: August 06, 2018 Decision to Disposition Time: 16:46 Depart Departure Latest Vital Signs Vital Signs Date Time Temp Pulse Resp B/P (MAP) Pulse Ox O2 Delivery O2 Flow Rate FiO2 08/06/18 17:45 90 88 5/7/19 17:38 158/83 (108) 08/06/18 15:30 16 08/06/18 12:30 97.7 Room Air Impression: Primary Impression: Sciatica Additional Impression: Atrial flutter, paroxysmal Condition: Improved Disposition: HOME OR SELF-CARE Referrals: HARRISON NEELY MD (PCP) New Scripts Oxycodone Hcl/Acetaminophen (OXYCODONE-ACETAMINOPHEN 5-325) 1 Each Tablet 1 EACH PO 1-2XD for 7 Days, #14 TAB Prov: IMAN CHEATHAM MD 08/06/18 Patient Instructions: Atrial Flutter (ED), Leg Pain (ED), Sciatica (ED) Problem Qualifiers Primary Impression: Sciatica Laterality: left Qualified Codes: M54.32 - Sciatica, left side IMAN CHEATHAM MD August 06, 2018 12:37
[2018-08-06 13:30] LABS: PLATELET COUNT, AUTOMATED 265 K/uL (150-450)
--- NOTE | 2018-08-06 13:42 | EKG ---
FACILITY: [facility] - [place] PATIENT NAME: ALEENA BEASLEY : [id number] MR: [id number] V: [id number] EXAM DATE: ORDERING PHYSICIAN: IMAN CHEATHAM TECHNOLOGIST: FELIPE Garza Reason : TACHY Blood Pressure : / mmHG Vent. Rate : 162 BPM Atrial Rate : 324 BPM P-R Int : 000 ms QRS Dur : 074 ms QT Int : 288 ms P-R-T Axes : -83 097 032 degrees QTc Int : 472 ms Supraventricular tacycardia with occasional ventricular ectopy vs. aberrantly conducted complexes Possible previous septal infarct Marked ST abnormality, possible inferior subendocardial injury Abnormal ECG Confirmed by MARCI OROZCO ([id number]) on 08/06/2018 3:06:19 PM Referred By: CHAPARRITA Confirmed By:MARCI OROZCO
--- NOTE | 2018-08-06 14:29 | RADIOLOGY IMAGING REPORT ---
[place] [facility] [place]IENT NAME: Juana Steiner : 1940 MR: [id number] V: [id number] EXAM DATE: ORDERING PHYSICIAN: IMAN CHEATHAM TECHNOLOGIST: Location: [facility] Patient: Juana Steiner : 1940 Visit/Account:[id number] Date of Sevice: 08/06/2018 Study: Single portable view of the chest. Indication: Tachycardia Comparison study: February 22, 2015 Technique: Single AP view of the chest demonstrates no evidence of acute infiltrate. There is no evid ence of pleural effusion or pneumothorax. The mediastinal, cardiac, and diaphragmatic contours are un remarkable. IMPRESSION: Unremarkable chest. Report Dictated By: Zak Rosado at 08/06/2018 2:20 PM Report E-Signed By: Zak Rosado at 08/06/2018 2:24 PM WSN:[id number]
[2018-08-06 17:38] VITALS: BP 158/83
== END ==
LOC: ER 12:36
DX: M54.32 Sciatica, left side (principal); I48.92 Unspecified atrial flutter; F17.210 Nicotine dependence, cigarettes, uncomplicated
CPT/HCPCS: 20552; 71045; 84484; 85025; 85379; 93005; 93225; 96361; 96374; 96375; 99284; A9270; J1100; J2270; J3301; J3490; J7030; 82040; 82247; 82310; 82374; 82435; 82565; 82947; 84075; 84132; 84155; 84295; 84450; 84460; 84520

== ENCOUNTER 2018-08-21 00:24 | Inpatient (IN) | payer MEDICARE ==
[~2018-08-21] VITALS: Ht 167.6 cm; Wt 56.7 kg
[2018-08-21] VITALS (19 sets, daily range): BP systolic 90–136; BP diastolic 55–80
[~2018-08-21 00:24] MED LIST changes: +CAPS60CR TP; -CAPSAICIN 60 GM TUBE TP SCH; -DEXAMETHASONE SOD PHOS 10MG/ML IVP ONE; +DILT120C28 PO; -DILTIAZEM 5 MG/ML 5ML IVPUSH IVP ONE; -DILTIAZEM SR 60 MG CAPCR PO ONE; +FURO40TA35 PO; -MORPHINE 4 MG/ML SDV IVP ONE; -NS(*) 0.9% 1000 ML BAG 1,000 ML IV ONE; -TRIAMCINOLONE ACE 40 MG/ML VL IM ONE; +[UNRECOGNIZED DRUG - CODE] PO; -traMADol 50 MG TAB PO ONE
[2018-08-21] MEDS: NORMOSOL R SOLN(*) 1000 ML BAG 1,000 ML IV PRN ×2 (05:30→08:25)
[2018-08-21] MEDS ORDERED: PREGABALIN 75 MG CAPSULE PO ONE (06:00)
[2018-08-21] MEDS ORDERED: BACITRACIN 50000 UNIT/VIAL 50,000 UNIT in NS 0.9% IRRIG(*) 1000ML PLCT 1,000 ML IR PRN (06:00)
[2018-08-21] MEDS ORDERED: ACETAMINOPHEN 500 MG TAB PO ONE (06:00)
[2018-08-21] MEDS ORDERED: LIDOCAINE/SOD BICARB 8.4% SYR ID ONE (06:30)
[2018-08-21] MEDS ORDERED: ceFAZolin(*) 2GM/D5W 50ML 50 ML IVPB ONE (06:30)
[2018-08-21] MEDS ORDERED: MIDAZOLAM 2 MG/2 ML VIAL IVP PRN (06:30)
[2018-08-21] MEDS ORDERED: DEXAMETHASONE SOD PHOS 10MG/ML ONE (06:47)
[2018-08-21] MEDS ORDERED: ONDANSETRON 4 MG/2 ML VIAL ONE (06:47)
[2018-08-21] MEDS ORDERED: ROCURONIUM BROM 10 MG/ML 10 ML ONE (06:47)
[2018-08-21] MEDS ORDERED: PROPOFOL EMUL(*) 10MG/ML 20 ML 20 ML ONE (06:47)
[2018-08-21] MEDS ORDERED: HYDROmorphone HCL 2 MG/ML SDV ONE (06:48)
[2018-08-21] MEDS ORDERED: ROPIVACAINE 0.2% 20 ML VIAL ONE (08:07)
[2018-08-21] MEDS ORDERED: SUGAMMADEX SOD 200 MG/2 ML SDV ONE (08:08)
[2018-08-21] MEDS ORDERED: BISACODYL 10 MG SUPP PR PRN (08:45)
[2018-08-21] MEDS ORDERED: HYDROmorphone HCL 2 MG/ML SDV IVP PRN (08:45)
[2018-08-21] MEDS ORDERED: ACETAMINOPHEN 500 MG TAB PO PRN (08:45)
[2018-08-21] MEDS ORDERED: MAGNESIUM HYDROXIDE* 30ML UDCP PO PRN (08:45)
[2018-08-21] MEDS ORDERED: diphenhydrAMINE 25 MG CAP PO PRN (08:45)
[2018-08-21] MEDS ORDERED: BENZOCAINE/MENTHOL 1 EACH LOZG PO PRN (08:45)
[2018-08-21] MEDS ORDERED: LR(*) 1000 ML BAG 1,000 ML IV PRN (08:45)
[2018-08-21] MEDS ORDERED: FLUSH 10 ML SYR IVP PRN (08:45)
[2018-08-21] MEDS ORDERED: ONDANSETRON 4 MG/2 ML VIAL IVP PRN (08:45)
[2018-08-21] MEDS ORDERED: ACETAMINOPHEN(*)1000 MG/100 ML 100 ML IVPB PRN (08:45)
[2018-08-21] MEDS: DOCUSATE SODIUM 100 MG CAP PO SCH ×2 (09:00→20:53)
--- NOTE | 2018-08-21 09:21 | OPERATIVE REPORT 1 ---
EVENT DATE: August 21, 2018 SURGEON: Pravin Farooq MD ANESTHESIOLOGIST: Sravan Galaviz MD ANESTHESIA: General endotracheal. SENIOR MORTGAGE UNDERWRITER: BRAULIO Mott PREOPERATIVE DIAGNOSIS L4-L5 spinal stenosis with radiculopathy and neurogenic claudication. POSTOPERATIVE DIAGNOSIS L4-L5 spinal stenosis with radiculopathy and neurogenic claudication. PROCEDURE PERFORMED L4-L5 laminectomy. IV FLUIDS 100 cc. ESTIMATED BLOOD LOSS 60 cc. IMPLANTS USED None. SPECIMENS None. DRAINS None. COMPLICATIONS None. DISPOSITION Post-Anesthesia Care Unit. INDICATIONS Ms. Steiner is a 78-year old female who presented with a complaint of low back pain with radiating symptoms down the left buttock, left lateral calf and into the dorsum of the left foot. The pain became severe. She was hospitalized for a couple of nights and then presented to me for evaluation. Her physical examination revealed difficulty with extension and limitation in forward flexion as well. She had normal strength and sensation throughout. Diagnostic studies showed multi-level degenerative disk disease and the MRI revealed severe spinal stenosis at L4-L5. Secondary to failure of physical therapy, medications and activity modifications, Ms. Steiner was offered and elected to undergo L4-L5 laminectomy. Prior to surgery, I explained in detail to the patient the possible risks of surgery. These risks include bleeding, infection, damage to surrounding structures, nerve root injury, spinal fluid leak, meningitis, persistent and/or worsening pain, need for further surgery, , blindness, sexual dysfunction, autonomic nervous system dysfunction and other unforeseen medical and surgical complications. An understanding that in general spinal surgery is more predictive at improving extremity discomfort than axial spine pain was stressed. DESCRIPTION OF PROCEDURE On the date of surgery, the patient was met in the preoperative hold area and all questions were answered. The operative site was identified and marked. The patient was brought in good condition to the operating room and after succumbing to anesthesia was positioned in the prone position on a Kev table. All bony protuberances and soft tissues were well padded in the standard fashion. Care was taken to maintain appropriate perfusion pressures during anesthesia. Preoperative antibiotics were administered according to the appropriate timing schedule. At the conclusion of the procedure, sponge and needle counts were correct x2. A final time-out was undertaken by members of the operating team to confirm correct patient, correct levels and correct surgery. A vertical midline incision was then made overlying the intended surgical levels and sharp dissection was carried out down to the posterior elements. The lumbar dorsal fascia was incised just lateral to the spinous processes bilaterally and a lateral radiograph was obtained to confirm appropriate spinal level. Soft tissues were elevated off the posterior elements in a subperiosteal manner and self-retaining retractors placed. A Leksell rongeur was used to remove the spinous process of L4. The L4 lamina was thinned down the midline with a combination of Leksell rongeur and a high- speed bur. A Chris type curette was then used to undermine the superior insertion of the ligamentum flavum from the inferior aspect of the L4 lamina. Once the canal was entered, a Montgomery elevator was used to separate any dural adhesions from surrounding bone and soft tissue prior to use of the Kerrison punch. A #4 Kerrison rongeur was then used to perform midline decompression. Bilateral lateral recess decompressions were carried out using #4 and #4 Kerrison rongeurs. Once I was satisfied that the lateral recesses and foramina were decompressed bilaterally, the wound was irrigated with copious sterile saline solution. Meticulous hemostasis was obtained and the wound was then closed in layers using a running STRATAFIX suture for the deep fascia, interrupted inverted sutures for the subcutaneous tissue and a running subcuticular skin stitch. Sponge and needle counts were correct 2. POSTOPERATIVE CARE PLAN Ms. Steiner will remain in the hospital overnight. She will be discharged home once she clears physical therapy. She will follow up in my clinic in two weeks for wound check and examination. LOREE
[2018-08-21] MEDS: oxyCODONE HCL 5 MG CAP PO PRN ×4 (10:00→22:44)
--- NOTE | 2018-08-21 11:25 | NUR ---
1120 PT TRANSFERRED TO INPATIENT ROOM, SBAR GIVEN TO ENEDELIA JONAS.
--- NOTE | 2018-08-21 11:30 | RADIOLOGY IMAGING REPORT ---
FACILITY: [facility] - [place] PATIENT NAME: Juana Steiner : 1940 MR: [id number] V: [id number] EXAM DATE: ORDERING PHYSICIAN: POLO ESCOBAR TECHNOLOGIST: [place] [facility] [place] Juana Steiner : 1940 Visit/Account:[id number] Date of Sevice: 08/21/2018 Exam type: L-SPINE >4 VIEWS History: L4-L5 DISC HERNIATION Comparison: July 16, 2018. Findings: A single prone intraoperative lateral view of the lumbar spine was submitted.. Assuming the patient has five nonrib-bearing lumbar-type vertebral bodies and a transitional sacralized segment a metallic probe is seen projecting over the posterior spinous process of L4. There is an adjacent opaque spon ge marker on this intraoperative study IMPRESSION: 1. As above Report Dictated By: Danitza Dubose MD at 08/21/2018 11:21 AM Report E-Signed By: Daintza Dubose MD at 08/21/2018 11:23 AM WSN:[email or web address]
[2018-08-21] MEDS: INSULIN HUM LISPRO 100 UN/ML 3 ML VIAL SUBQ PRN ×3 (13:49→21:24)
[2018-08-21] MEDS: ceFAZolin(*) 2GM/D5W 50ML 50 ML IVPB SCH ×2 (15:17→22:15)
[2018-08-21] MEDS: DIAZEPAM 5 MG TAB PO PRN (15:53)
--- NOTE | 2018-08-21 19:29 | Hospitalist Progress Note ---
Subjective Progress Notes Subjective No cp/sob. 1000cc of EBL. Ephedrine and dexamethasone given intra-op. Physical Exam Vital Signs Date Time Temp Pulse Resp B/P (MAP) Pulse Ox O2 Delivery O2 Flow Rate FiO2 08/21/18 15:52 84 113/80 (91) 08/21/18 14:30 94 08/21/18 13:58 Nasal Cannula 2.0 08/21/18 11:15 97.7 12 General Appearance: Alert, Awake, No Acute Distress Cardiovascular: Regular Rate and Rhythm Respiratory: Clear to Auscultation Extremities: No Edema Assessment and Plan Problems: (1) Status post lumbar laminectomy Status: Acute Assessment & Plan: No CV/pulmonary issues. Will defer to Dr. Farooq for VTE prophylaxis. (2) Atrial flutter, paroxysmal Status: Chronic Assessment & Plan: Diagnosed just a few weeks ago. They are not giving medication for stroke prophylaxis until awhile after surgery. She was in a sinus rhythm in PACU. Regular on exam, now. Continue diltiazem with parameters. She did take it this morning. (3) Type 2 diabetes mellitus Status: Chronic Assessment & Plan: Chronically on metformin, which will be held for about 48hours post op. AC and HS glucose with SSI level 2. (4) HTN (hypertension) Status: Chronic Assessment & Plan: Continue chronic diltiazem and lisinopril with parameters. (5) GERD (gastroesophageal reflux disease) Status: Chronic Assessment & Plan: Chronically on omeprazole. Protonix while in the hospital. (6) Edema of both lower extremities Status: Chronic Assessment & Plan: Trace to no edema on exam. Chronically on Lasix, but will hold for now. Exam Sepsis Risk: No Definite Risk JOSE MARIA QUINTERO MD August 21, 2018 19:29
[2018-08-21] MEDS: ATORVASTATIN 40 MG TAB PO SCH (20:54)
[2018-08-22 02:59] VITALS: BP 131/84
[2018-08-22] MEDS: oxyCODONE HCL 5 MG CAP PO PRN ×4 (06:09→21:17)
[2018-08-22] MEDS: ceFAZolin(*) 2GM/D5W 50ML 50 ML IVPB SCH (06:22)
[2018-08-22] MEDS ORDERED: DIA5 PO (07:20)
[2018-08-22] MEDS ORDERED: LOR5/325 PO (07:21)
[2018-08-22] MEDS ORDERED: DOCU240C84 PO (07:21)
[2018-08-22] MEDS: DILTIAZEM CD 120 MG CAPCR PO SCH (08:16)
[2018-08-22] MEDS: DOCUSATE SODIUM 100 MG CAP PO SCH ×2 (08:16→21:17)
[2018-08-22] MEDS: PANTOPRAZOLE SOD 40 MG TABEC PO SCH (08:16)
[2018-08-22] MEDS: INSULIN HUM LISPRO 100 UN/ML 3 ML VIAL SUBQ PRN ×2 (08:17→16:46)
--- NOTE | 2018-08-22 08:39 | NUR ---
Physical Therapy Impression PT eval complete. Pt instructed in bed mobility, with good log roll demonstrated. SBA/CGA for transfers with RW. Pt ambulated 150' with RW and SBA/CGA with good tolerance and step through gait pattern, SPO2 WNL on room air with ambulation. Trial of ambulation with SPC, pt with poor dynamic balance with gait requiring hand holds on bed to assist with balance. Pt with LOB when trying to sit in chair, but able to self correct with CGA. PT instruction for sequencing with stair negotiation and use of RW. Pt able to complete second repetition with no verbal cues and SBA/CGA. Pt is not yet safe to d/c home alone and would benefit from further skilled PT instruction prior to d/c. [facility] PT upon d.c. Physical Therapy Goals 1: Pt to complete bed mobility with SBA 2: Pt to complete transfers with SBA and SPC 3: Pt to ambulate 20' with SBA and SPC 4: Pt to ambulate 150' with SBA and RW 5: Pt to asc/desc platform stair with CGA Patient's Goals
[2018-08-22 08:46] VITALS: BP 136/70
[2018-08-22] MEDS: LISINOPRIL 10 MG TAB PO SCH (09:00)
[2018-08-22] MEDS: guaiFENesin 600 MG TABCR PO SCH ×2 (09:21→21:17)
[2018-08-22] MEDS: metFORMIN HCL 500 MG TAB PO SCH ×2 (09:22→17:20)
[2018-08-22 10:35] VITALS: Ht 167.6 cm; Wt 56.7 kg
--- NOTE | 2018-08-22 10:38 | Hospitalist Progress Note ---
Subjective Progress Notes Subjective She was admitted s/p lumbar surgery. She has complaints of increased phlegm this morning in her throat. Otherwise, she had no acute events overnight. Patient Complains of: Cardiovascular: No: Chest Pain Respiratory: No: Shortness of Breath Physical Exam Vital Signs Date Time Temp Pulse Resp B/P (MAP) Pulse Ox O2 Delivery O2 Flow Rate FiO2 08/22/18 02:59 98.2 81 18 131/84 (100) 91 Nasal Cannula 1.0 Intake and Output 08/22/18 07:00 Intake Total 2488 ml Balance 2488 ml Intake Oral 1332 ml IV Total 1156 ml # Voids 3 General Appearance: Alert, Awake, No Acute Distress, Afebrile Neuro: No Gross deficits Cardiovascular: Regular Rate and Rhythm Respiratory: No Respiratory Distress, Other (expiratory wheezes heard bilaterally ) GI: Soft and Non-Tender Extremities: Warm, Perfused; No Edema Psych: Alert & Oriented X3, Appropriate Mood & Affect Assessment and Plan Problems: (1) Status post lumbar laminectomy Status: Acute Assessment & Plan: No CV/pulmonary issues. Will defer to Dr. Farooq for VTE prophylaxis. (2) Atrial flutter, paroxysmal Status: Chronic Assessment & Plan: Diagnosed just a few weeks ago. They are not giving medication for stroke prophylaxis until awhile after surgery. She was in a sinus rhythm in PACU. Regular on exam, now. Continue diltiazem with parameters. (3) Type 2 diabetes mellitus Status: Chronic Assessment & Plan: Chronically on metformin, which will be held for about 48hours post op. AC and HS glucose with SSI level 2. (4) HTN (hypertension) Status: Chronic Assessment & Plan: Continue chronic diltiazem and lisinopril with parameters. (5) GERD (gastroesophageal reflux disease) Status: Chronic Assessment & Plan: Chronically on omeprazole. Protonix while in the hospital. (6) Edema of both lower extremities Status: Chronic Assessment & Plan: Trace to no edema on exam. Chronically on Lasix, but will hold for now. Exam Sepsis Risk: No Definite Risk JACLYN THOMPSON REPORTING PROCESS CONSULTANT August 22, 2018 10:38
[2018-08-22] MEDS: DIAZEPAM 5 MG TAB PO PRN (10:51)
[2018-08-22] MEDS: LEVALBUTEROL 0.63 MG/3 ML NEB NEB SCH ×2 (11:54→18:00)
[2018-08-22 12:35] VITALS: BP 128/59
[2018-08-22 16:37] VITALS: BP 128/71
[2018-08-22] MEDS: APAP/HYDROCODONE 325/5 TAB PO PRN (19:07)
[2018-08-22 19:50] VITALS: BP 116/60
[2018-08-22] MEDS: ATORVASTATIN 40 MG TAB PO SCH (21:17)
[2018-08-23] MEDS: DIAZEPAM 5 MG TAB PO PRN (00:14)
[2018-08-23] MEDS ORDERED: LEVALBUTEROL 0.63 MG/3 ML NEB ONE (00:27)
[2018-08-23 04:31] VITALS: BP 102/49
[2018-08-23] MEDS: LEVALBUTEROL 0.63 MG/3 ML NEB NEB SCH (05:15)
[2018-08-23 06:52] VITALS: BP 126/63
[2018-08-23] MEDS ORDERED: metFORMIN HCL 500 MG TAB PO SCH (08:00)
[2018-08-23] MEDS ORDERED: GUAI600T57 PO (08:57)
[2018-08-23] MEDS: DILTIAZEM CD 120 MG CAPCR PO SCH (08:59)
[2018-08-23] MEDS: metFORMIN HCL 500 MG TAB PO SCH (08:59)
[2018-08-23] MEDS: LISINOPRIL 10 MG TAB PO SCH (08:59)
[2018-08-23] MEDS: DOCUSATE SODIUM 100 MG CAP PO SCH (08:59)
[2018-08-23] MEDS: guaiFENesin 600 MG TABCR PO SCH (08:59)
[2018-08-23] MEDS: PANTOPRAZOLE SOD 40 MG TABEC PO SCH (08:59)
[2018-08-23] MEDS ORDERED: LEVALBUTEROL 15 GM INH INH PRN (09:00)
[2018-08-23] MEDS: APAP/HYDROCODONE 325/5 TAB PO PRN (11:20)
[2018-08-23] MEDS ORDERED: WARF2.5T11 PO (11:36)
--- NOTE | 2018-08-23 11:51 | Hospitalist Progress Note ---
Subjective Progress Notes Subjective She was admitted s/p lumbar surgery. She had no acute events overnight. She would like to go home today. Patient Complains of: Cardiovascular: No: Chest Pain Respiratory: No: Shortness of Breath Physical Exam Vital Signs Date Time Temp Pulse Resp B/P (MAP) Pulse Ox O2 Delivery O2 Flow Rate FiO2 08/23/18 08:42 82 08/23/18 07:21 Room Air 08/23/18 06:52 98.5 71 16 126/63 (84) 3.0 Intake and Output 08/23/18 07:00 Intake Total 2410 ml Balance 2410 ml Intake Oral 2360 ml IV Total 50 ml # Voids 7 General Appearance: Alert, Awake, No Acute Distress, Afebrile Neuro: No Gross deficits Cardiovascular: Regular Rate and Rhythm Respiratory: No Respiratory Distress, Clear to Auscultation GI: Soft and Non-Tender Psych: Alert & Oriented X3, Appropriate Mood & Affect Assessment and Plan Problems: (1) Status post lumbar laminectomy Status: Acute Assessment & Plan: No CV/pulmonary issues. Will defer to Dr. Farooq for VTE prophylaxis. She will be sent home with oxygen post-operatively. She will continue mucinex to help with increase secretions. (2) Atrial flutter, paroxysmal Status: Chronic Assessment & Plan: Diagnosed just a few weeks ago. They are not giving medication for stroke prophylaxis until awhile after surgery. She was in a sinus rhythm in PACU. Regular on exam, now. Continue diltiazem with parameters. She will follow up with PCP in one week for stroke prophylaxis. (3) Type 2 diabetes mellitus Status: Chronic Assessment & Plan: Chronically on metformin, which will be held for about 48hours post op. AC and HS glucose with SSI level 2. (4) HTN (hypertension) Status: Chronic Assessment & Plan: Continue chronic diltiazem and lisinopril with parameters. (5) GERD (gastroesophageal reflux disease) Status: Chronic Assessment & Plan: Chronically on omeprazole. Protonix while in the hospital. (6) Edema of both lower extremities Status: Chronic Assessment & Plan: Trace to no edema on exam. Chronically on Lasix, but will hold for now. Exam Sepsis Risk: No Definite Risk JACLYN THOMPSON SLOT FLOORPERSON August 23, 2018 11:51
--- NOTE | 2018-08-23 16:17 | NUR ---
PHYSICAL THERAPY INFORMATION TRANSFER SHEET BED MOBILITY: Standby Assistance Verbal cues TRANSFERS: 1 person assist CGA GAIT: 150 ' with Cane O2 RW and 1 person assist CGA LUMBAR PRECAUTIONS STAIRS: 1 with 1 person assist Verbal cues CGA. EXERCISES: Verbalizes Needs: Yes Understands Directions Yes Cooperative: Yes Family Teaching: No Physical Therapy Comment:
--- NOTE | 2018-08-23 16:17 | NUR ---
This Physical Therapist or Certified Adapted Physical Educator was present for the entire physical therapy session directing the services, making the skilled judgement, and was not engaged in treating another patient or doing another task at the same time as the treatment session. Addendum: 08/23/18 at 1618 by JULI TREJO PT Amended: Links added.
--- NOTE | 2018-08-23 16:17 | NUR ---
Physical Therapy Impression Pt. demonstrated improved tolerance to activity and increased stability. Pt. required verbal cues on log roll w/ HOB raised and SAB for bed mobility. Pt. tf sit<>stand with CGA. Initially Pt attempted to use SPC for gait, used for <10 ft. Pt. appeared unsteady and anxious about using it. Pt. then used RW for rest of ambulation near 150 ft., appearing more steady/confident. Pt remained on O2 throughout ambulation. Pt. ascend/descend 1 stair w/ verbal cues for sequencing and using R railing/RW walker. Pt was left supine in bed, call light in reach, all needs met, and O2 on. Pt would benefit from HH to further improve stability during ambulation and endurance. Encouraged Pt to use RW at home at all times. Pt verbalized understanding. Physical Therapy Goals 1: Pt to complete bed mobility with SBA 2: Pt to complete transfers with SBA and SPC 3: Pt to ambulate 20' with SBA and SPC 4: Pt to ambulate 150' with SBA and RW 5: Pt to asc/desc platform stair with CGA Patient's Goals
== END 2018-08-23 13:25 | disposition home or self-care (01) | DRG 516 ==
LOC: OR 00:24 → MED 11:15
PROVIDERS: ADMIT Orthopaedic Surgery; ATTEND Orthopaedic Surgery
PROC: 01NB0ZZ Release Lumbar Nerve, Open Approach (ICD-10-PCS; principal; 2018-08-21 07:05)
DX: M48.062 Spinal stenosis, lumbar region with neurogenic claudication (principal); I48.92 Unspecified atrial flutter; M54.16 Radiculopathy, lumbar region; E11.9 Type 2 diabetes mellitus without complications; I10 Essential (primary) hypertension; K21.9 Gastro-esophageal reflux disease without esophagitis; R60.9 Edema, unspecified; F17.210 Nicotine dependence, cigarettes, uncomplicated; Z79.84 Long term (current) use of oral hypoglycemic drugs
CPT/HCPCS: 36416; 72020; 82948; 94640; 97161; J0690; J1100; J1170; J2250; J2405; J2704; J2795; J7614

== ENCOUNTER → 2018-08-27 | Outpatient (CLI) | payer MEDICARE ==
[2018-08-22 10:35] VITALS: BMI 20.2
[~2018-08-27] MED LIST changes: +DIA5 PO; +DOCU240C84 PO; +GUAI600T57 PO; +LOR5/325 PO; +WARF2.5T11 PO
[2018-08-27 12:54] LABS: INR 4.98
== END ==
LOC: LAB 12:13
PROVIDERS: ATTEND Family Medicine
DX: I48.92 Unspecified atrial flutter (principal)
CPT/HCPCS: 36415; 85610

== ENCOUNTER → 2018-09-02 | Outpatient (CLI) | payer MEDICARE ==
[2018-08-22 10:35] VITALS: BMI 20.2
[~2018-09-02] MED LIST changes: -OMEP-125 PO; +OMEP-126 PO
[2018-09-02 15:34] LABS: INR 1.1
== END ==
LOC: LAB 13:28
PROVIDERS: ATTEND Family Medicine
DX: I10 Essential (primary) hypertension (principal); Z79.01 Long term (current) use of anticoagulants
CPT/HCPCS: 36415; 82310; 82374; 82435; 82565; 82947; 84132; 84295; 84520; 85610

== ENCOUNTER → 2018-10-01 | Outpatient (CLI) | payer MEDICARE ==
[2018-08-22 10:35] VITALS: BMI 20.2
[~2018-10-01] MED LIST changes: +METO25TA93 PO
== END ==
LOC: LAB 11:02
PROVIDERS: ATTEND Family Medicine
DX: I10 Essential (primary) hypertension (principal)
CPT/HCPCS: 36415; 82310; 82374; 82435; 82565; 82947; 84132; 84295; 84520

== ENCOUNTER → 2018-10-11 | Outpatient (CLI) | payer MEDICARE ==
[2018-08-22 10:35] VITALS: BMI 20.2
[~2018-10-11] MED LIST changes: +SPIR25TA76 PO
== END ==
LOC: RAD 01:37
PROVIDERS: ATTEND Family Medicine
DX: I51.7 Cardiomegaly (principal); I34.0 Nonrheumatic mitral (valve) insufficiency
CPT/HCPCS: 93306

== ENCOUNTER → 2018-10-21 | Outpatient (CLI) | payer MEDICARE ==
[2018-08-22 10:35] VITALS: BMI 20.2
[2018-10-21 12:20] LABS: PLATELET COUNT, AUTOMATED 294 K/uL (150-450)
== END ==
LOC: LAB 11:32
PROVIDERS: ATTEND Family Medicine
DX: E11.9 Type 2 diabetes mellitus without complications (principal); R60.0 Localized edema; I10 Essential (primary) hypertension
CPT/HCPCS: 36415; 82040; 82247; 82310; 82374; 82435; 82565; 82947; 83036; 84075; 84132; 84155; 84295; 84443; 84450; 84460; 84520; 85025

== ENCOUNTER → 2018-11-14 | Outpatient (CLI) | payer MEDICARE ==
[2018-08-22 10:35] VITALS: BMI 20.2
[2018-11-14 15:20] LABS: PLATELET COUNT, AUTOMATED 291 K/uL (150-450)
== END ==
LOC: LAB 14:17
PROVIDERS: ATTEND Family Medicine
DX: I48.91 Unspecified atrial fibrillation (principal)
CPT/HCPCS: 36415; 82310; 82374; 82435; 82565; 82947; 84132; 84295; 84520; 85025

== ENCOUNTER 2018-11-15 16:00 | Outpatient (RCR) | payer MEDICARE ==
[2018-08-22 10:35] VITALS: BMI 20.2
--- NOTE | 2018-10-23 06:52 | PT INITIAL EVALUATION ---
MEDICAL DIAGNOSIS: Edema of Both Lower Extremities TREATMENT DIAGNOSIS: Edema of Both Lower Extremities, Phlebolymphedema DATE OF ONSET: 10/21/18 SUBJECTIVE: Juana Steiner is a 78 year old female presenting to physical therapy following gradual onset of edema in B LE. Pt reports that edema started back in late July prior to her back surgery when she had significant radiating pain from her back down her legs L>R. Following the surgery she was started on diuretics and JERE hose, but that the edema continued. Pt stopped wearing the JERE hose because they were difficult to put on and has recently been placed on a stronger diuretic. Pt reports that the edema has been reduced slightly but that the legs are very heavy and make it difficult to move. Pt reports no pain other that the occasional ache in the upper left thigh and leg. Pt reports that she was wrapped by Home Health when she was first discharged but that it created edema in her thigh instead of the lower leg. Pt reports no history of CHF or renal disease, pt does have a history of A-fib and DM. Pt reports that occasionally she will develop wounds that weep significantly and take a while to heal but that they are all scabbed over currently. Pt reports edema is worse in the evenings and use to go down with elevation but now no longer changes much. REHAB PROBLEM LIST: Increased Pain Decreased Endurance Decreased Function Decreased ADL's Decreased Mobility Decreased Gait PREVIOUS MEDICAL HISTORY: See EMR OCCUPATION: Retired OBJECTIVE: Pt presents with B LE edema from above knees to dorsum. Pt has scabbed wound on the dorsum of the L foot with small pin pick wounds along B shins. Mild hemosiderin staining is present around the lower leg. Palpation: 2+ pitting is evident on LE and dorsum B. Stemmer's sign (+) B dorsum and toes. Foot is warm to touch without redness. Sensation: Pt has good sensation to light touch along sole of foot and toes. Special Tests: Circumferential Measures in cm (R, L): 1st digit: 8.1, 7.9, 2nd: 5.7, 5.7, dorsum: 24.5, 24.6, arch: 24.5, 24.3, heel: 32.8, 33, Abv mal: 23.5, 25.7, Figure-8: 53.4, 54.1, Calf: 35.4, 36.3, Below knee: 35.5, 35.5, Above knee: 41.5, 38.9, 10-cm abv patella: 44.5, 42.7. Length to knee: 43, 43 Gait: Gait is slow with minimal foot clearance and increased time to start gait from rising. ASSESSMENT: Juana presents with signs and symptoms consistent with phlebolymphedema. Physical therapy consisting of CDT is indicated for this patient to address the above listed impairments to improve pt ambulation and function with ADL's. Short Term Goals In 4 weeks pt will reduce circumferential measures above the ankle to 20 cm for improved function with ADL's. In 4 weeks pt will be compliant with independent compression garment use and HEP for maintenance of decreases in circumferential volume with ADL's. In 4 weeks pt will have a (-) Stemmer's sign on dorsum and toes indicating decreased protein content for decreased pain and improved function with ADL's. Patient's Goals Decreased edema for improved mobility and function PLAN: Patient to be seen for Manual Therapy/STM/MET Strengthening/condition Range of Motion Stretching Closed Chain Program Posture/Body mechanics Gait Trg/Balance Trg Home Exercise Program [facility]./Manual Traction Therapeutic Activities 5x/Week for 4 Weeks If you have any questions, please contact me at . Thank you, Rosa Pelaez, PT, DPT, CLT MTDKunal
--- NOTE | 2018-11-01 14:57 | PT PLAN OF CARE ---
Physician: Flavia Graham MD Patient is being seen: 5x/Week Therapist: Rosa Pelaez, PT, DPT, CLT Medical Diagnosis: Edema of Both Lower Extremities Treatment Diagnosis: Edema of Both Lower Extremities, Phlebolymphededma Date of Onset: 10/21/18 Date of Initial Evaluation: 10/21/18 Date patient was last seen: 11/01/18 Number of treatments: 10 Number of cancellations/No shows: 0 INTERVENTIONS: Manual Therapy/STM/MET Strengthening/condition Range of Motion Stretching Closed Chain Program Posture/Body mechanics Gait Trg/Balance Trg Home Exercise Program Mech./Manual Traction Therapeutic Activities GOALS: In 4 weeks pt will reduce circumferential measures above the ankle to 20 cm for improved function with ADL's. In 4 weeks pt will be compliant with independent compression garment use and HEP for maintenance of decreases in circumferential volume with ADL's. In 4 weeks pt will have a (-) Stemmer's sign on dorsum and toes indicating decreased protein content for decreased pain and improved function with ADL's. PATIENT'S GOAL: Decreased edema for improved mobility and function Status of Patient's Goals: In Progress Patient Compliance: Good Prognosis: Good Reasons for continuing therapy: Juana shows good progression with CDT with overall decreased circumferential volume and improved functional mobility with transfers as well as improved skin mobility and texture. Following initial compression wrapping pt showed significant reductions below the knee with slight increased edema in thigh. Following trial to compression stockings pt has shown slight increased below knee edema, though thigh circumference shows regain in reduced status. Further PT to continue with MLD treatment with possible return to compression wrapping and pt progression towards independent compression garment use. Palpation: Pitting is evident on dorsum B. Stemmer's sign (-) B dorsum and (+) toes. Foot is warm to touch without redness. Special Tests: Circumferential Measures in cm (R, L) EVAL: 1st digit: 8.1, 7.9, 2nd: 5.7, 5.7, dorsum: 24.5, 24.6, arch: 24.5, 24.3, heel: 32.8, 33, Abv mal: 23.5, 25.7, Figure-8: 53.4, 54.1, Calf: 35.4, 36.3, Below knee: 35.5, 35.5, Above knee: 41.5, 38.9, 10-cm abv patella: 44.5, 42.7. Length to knee: 43, 43 Circumferential Measures in cm (R, L) 11/01/18: 1st digit: 8.5 7.8, 2nd: 5.6, 5.5, dorsum: 23.5, 23.3, arch: 22.5, 22.4, heel: 30.9, 31.5, Abv mal: 23.0, 23.9, Figure-8: 51.9, 52.4, Calf: 34.7, 34, Below knee: 335.6, 34.9, Above knee: 42.9, 40.4, 10-cm abv patella: 45.5, 43.9. Length to knee: 43, 43 If you have any questions, please feel free to contact me at [phone]. Thank you, Rosa Pelaez, PT, DPT, CLT MTDD
--- NOTE | 2018-11-18 07:31 | PT PLAN OF CARE ---
Physician: Flavia Graham MD Patient is being seen: 5x/Week Therapist: Rosa Pelaez, PT, DPT, CLT Medical Diagnosis: Edema of Both Lower Extremities Treatment Diagnosis: Edema of Both Lower Extremities, Phlebolymphededma Date of Onset: 10/21/18 Date of Initial Evaluation: 10/21/18 Date patient was last seen: 11/15/18 Number of treatments: 19 Number of cancellations/No shows: INTERVENTIONS: Manual Therapy/STM/MET Strengthening/condition Range of Motion Stretching Closed Chain Program Posture/Body mechanics Gait Trg/Balance Trg Home Exercise Program Mech./Manual Traction Therapeutic Activities GOALS: In 4 weeks pt will be compliant with independent compression garment use and HEP for maintenance of decreases in circumferential volume with ADL's. MET In 4 weeks pt will have a (-) Stemmer's sign on dorsum and toes indicating decreased protein content for decreased pain and improved function with ADL's. MET PATIENT'S GOAL: Decreased edema for improved mobility and function Status of Patient's Goals: In Progress Patient Compliance: Good Prognosis: Good Reasons for discharge from therapy: Juana is to discharge from physical therapy at this time secondary to completion of 2/2 functional goals. At the time of discharge, Juana showed significant reductions in circumferential volume of the entire LE with improved skin mobility, healing of all wounds, and improved functional mobility of limbs. Upon discharge pt is to continue maintenance of reductions with compression stocking use daily and occasional compression in the evening if any flare ups occur. Pt is currently independent with compression stockings and is able to don and doff independently. Palpation: Pitting is evident on dorsum B. Stemmer's sign (-) B dorsum and toes Special Tests: Circumferential Measures in cm (R, L) EVAL: 1st digit: 8.1, 7.9, 2nd: 5.7, 5.7, dorsum: 24.5, 24.6, arch: 24.5, 24.3, heel: 32.8, 33, Abv mal: 23.5, 25.7, Figure-8: 53.4, 54.1, Calf: 35.4, 36.3, Below knee: 35.5, 35.5, Above knee: 41.5, 38.9, 10-cm abv patella: 44.5, 42.7. Length to knee: 43, 43 Circumferential Measures in cm (R, L) 11/01/18: 1st digit: 8.5 7.8, 2nd: 5.6, 5.5, dorsum: 23.5, 23.3, arch: 22.5, 22.4, heel: 30.9, 31.5, Abv mal: 23.0, 23.9, Figure-8: 51.9, 52.4, Calf: 34.7, 34, Below knee: 35.6, 34.9, Above knee: 42.9, 40.4, 10-cm abv patella: 45.5, 43.9. Length to knee: 43, 43 Circumferential Measures in cm (R, L) 11/15/18: 1st digit: 8.0 7.8, 2nd: 5.4, 5.5, dorsum: 23.3, 21.8, arch: 22.2, 21.7, heel: 30.1, 29.5, Abv mal: 22.6, 23.9, Figure-8: 50.5, 50.8, Calf: 31, 32, Below knee: 32.5, 32.3, Above knee: 39.6, 37.5, 10-cm abv patella: 42, 40. Length to knee: 43, 43 If you have any questions, please feel free to contact me at [phone]. Thank you, Rosa Pelaez, PT, DPT, CLT MTDD
== END 2018-11-15 18:00 | disposition home or self-care (01) ==
LOC: PT 16:00
PROVIDERS: ATTEND Family Medicine
DX: R60.0 Localized edema (principal); I89.0 Lymphedema, not elsewhere classified
CPT/HCPCS: 97162